=== PATIENT | male | born 1955 | race Hispanic/Latino ===

== ENCOUNTER 2023-06-20 14:22 | Outpatient (CLI) | payer OTHER | END 2023-06-20 14:23 | disposition home or self-care (01) | LOC: BICULT 14:22 | PROVIDERS: ATTEND Family Medicine | DX: S80.11XD Contusion of right lower leg, subsequent encounter (principal); M79.661 Pain in right lower leg; M96.841 Postprocedural hematoma of a musculoskeletal structure following other procedure | CPT/HCPCS: 76999 ==